=== PATIENT | male | born 1980 | race Caucasian/White ===

== ENCOUNTER 2023-10-31 12:47 | Emergency (ER) | payer MEDICAID, OTHER ==
[~2023-10-31] VITALS: Ht 188 cm; Wt 109.7 kg
[~2023-10-31 12:47] MED LIST: ATOR20TA66 PO; DULO60CA65 PO; LISI10TA27 PO; NICO-687 TD; TRAZ-251 PO
[2023-10-31] MEDS ORDERED: IBUP-1984 PO (14:46)
[2023-10-31] MEDS ORDERED: PRED50TA PO (14:46)
[2023-10-31] MEDS: ketorolac trometh 15mg/ml vial 15 MG/ML ML IM ONE (14:51)
[2023-10-31 15:00] VITALS: BP 171/110; PULSE 89; RESP 17; TEMP 98; O2SAT 98
== END 2023-10-31 15:03 | disposition home or self-care (01) ==
LOC: ER 12:48
DX: M19.011 Primary osteoarthritis, right shoulder (principal); M25.511 Pain in right shoulder; F32.A Depression, unspecified; Z88.0 Allergy status to penicillin; Z79.899 Other long term (current) drug therapy
CPT/HCPCS: 73030; 96372; 99283; J1885